=== PATIENT | female | born 1955 | race Caucasian/White ===

== ENCOUNTER 2022-06-11 10:43 | Outpatient (CLI) | payer OTHER | END 2022-06-11 10:44 | disposition home or self-care (01) | LOC: DTY/OP 10:43 | PROVIDERS: ATTEND Surgery | DX: E66.01 Morbid (severe) obesity due to excess calories (principal) | CPT/HCPCS: 97802 ==

== ENCOUNTER 2022-09-09 10:15 | Inpatient (IN) | payer MEDICARE ==
[2022-09-19 11:22] LABS: SARS-CoV-2 NAA Rapid Test Not Detected (NotDetected)
[2022-09-19] MEDS ORDERED: Bupivacaine/Epinephrine 0.25% 30 ML VIAL ONE (14:48)
[2022-09-19] MEDS ORDERED: SUGAMMADEX SODIUM 200 MG/2 ML VIAL ONE (14:49)
[2022-09-19] MEDS ORDERED: fentaNYL PF 100 MCG/2 ML SYRINGE ONE ×2 (14:49→16:37)
[2022-09-19] MEDS ORDERED: Levofloxacin 500 mg/D5W 100 ml Premix Bag ONE (14:53)
[2022-09-19] MEDS ORDERED: PROPOFOL 200 MG/20 ML VIAL ONE (15:06)
[2022-09-19] MEDS ORDERED: Rocuronium Bromide 10 MG/ML (10ML VIAL) ONE (15:06)
[2022-09-19] MEDS ORDERED: Esmolol 100 MG/10 ML VIAL ONE (15:06)
[2022-09-19] MEDS ORDERED: Ondansetron HCl/PF 4 MG/2 ML Vial IVP PRN (16:28)
[2022-09-19] MEDS ORDERED: Promethazine HCl 25 MG/ML VIAL IVPB PRN (16:28)
[2022-09-19] MEDS ORDERED: Promethazine HCl 25 MG/ML VIAL IM PRN ×2 (16:28→16:29)
[2022-09-19] MEDS ORDERED: diphenhydrAMINE 50 MG/ML VIAL IVP PRN (16:29)
[2022-09-19] MEDS ORDERED: Dextrose 50% Abboject 50 ML SYRINGE SLOW IVP PRN (16:29)
[2022-09-19] MEDS ORDERED: hydrALAZINE 20 MG/ML VIAL SLOW IVP PRN (16:29)
[2022-09-19] MEDS ORDERED: Dextrose 5% in Water 1,000 ML IV PRN (16:29)
[2022-09-19] MEDS ORDERED: Ondansetron PF 4 MG/2 ML Vial IVP PRN (16:29)
[2022-09-19] MEDS ORDERED: Morphine 4 MG/ML VIAL SLOW IVP PRN (16:38)
[2022-09-19] MEDS ORDERED: Simethicone 40 MG/0.6 ML Drop 30 ML BOT PO PRN (17:47)
[2022-09-19] MEDS ORDERED: FENTANYL 50 MCG/ML 1 ML VIAL ONE (18:08)
[2022-09-19] MEDS: Hydrocodone-Acetamin 15 ML UDCUP PO PRN (20:02)
[2022-09-19] MEDS: Morphine 4 MG/ML VIAL SLOW IVP PRN (20:06)
[2022-09-19 20:10] VITALS: BMI 41.6
[2022-09-20] MEDS: Hydrocodone-Acetamin 15 ML UDCUP PO PRN ×2 (00:15→13:55)
[2022-09-20] MEDS: HumaLOG 300 UNITS/3 ML VIAL SC PRN ×3 (01:39→13:56)
[2022-09-20] MEDS: Morphine 4 MG/ML VIAL SLOW IVP PRN (04:07)
[2022-09-20] MEDS ORDERED: Sodium Chloride 0.9% 1,000 ML IV SCH (04:30)
[2022-09-20 05:13] LABS: #Eosinphils 0.1 thou/uL (0.0-0.7); #Lymphocytes 2.6 thou/uL (1.20-3.40); #Monocytes 1.1 thou/uL (0.11-0.59); #Neutrophils 12.8 thou/uL (1.40-6.50); %Basophils 0.1 % (0.0-1.0); %Eosinophils 0.8 % (0.0-10.0); %Lymphocytes 15.4 % (21.0-51.0); %Monocytes 6.8 % (0.0-10.0); Hemoglobin 9.7 g/dL (12.0-16.0); Mean Corpuscular HGB CONC 30.8 g/dL (32.0-36.0); Mean Corpuscular Hemoglobin 26.7 pg (27.0-31.0); Mean Corpuscular Volume 86.7 fl (78.0-98.0); Mean Platelet Volume 8.1 fL (7.4-10.4); Platelet Count 300 10x3/uL (130-400); RBC Distribution Width 15.2 % (11.5-14.5); Red Blood Cell (RBC) Count 3.63 mill/uL (4.20-5.40); White Blood Cell (WBC) Count 16.7 10x3/uL (4.8-10.8)
[2022-09-20 05:19] LABS: Anion Gap 20 mmol/L (10-20); BUN (Urea Nitrogen) 35 mg/dL (9.8-20.1); Calc. Creatinine Clearance 74 mL/min (70-130); Calcium 8.6 mg/dL (7.8-10.44); Carbon Dioxide 16 mmol/L (23-31); Chloride 102 mmol/L (98-107); Estimated GFR 45; Glucose 287 mg/dL (80-115); Potassium 5.6 mmol/L (3.5-5.1); Sodium 132 mmol/L (136-145)
[2022-09-20] MEDS: Pantoprazole 40 MG VIAL IVP SCH (08:43)
[2022-09-20] MEDS ORDERED: FLU VACC QS2022-23(65YR UP)/PF 240 MCG/0.7 ML SYRINGE IM ONE (09:00)
[2022-09-20] MEDS ORDERED: Enoxaparin Sodium 40 MG/0.4 ML SYRINGE SC SCH (09:00)
[2022-09-20 09:46] LABS: Hemoglobin 9.3 g/dL (12.0-16.0)
[2022-09-20] MEDS ORDERED: Lactated Ringer's 500 ML IV SCH ×3 (11:00→15:45)
[2022-09-20 12:04] LABS: Lactic Acid 2.5 mmol/L (0.5-2.2)
[2022-09-20] MEDS: methylPREDNISolone Sod Succ 40 MG VIAL IVP SCH ×2 (13:55→17:15)
[2022-09-20 15:07] LABS: Reticulocyte Count 3.1 % (0.5-1.5)
[2022-09-20 15:09] LABS: Hemoglobin 9.2 g/dL (12.0-16.0)
[2022-09-20 15:11] LABS: Potassium 4.3 mmol/L (3.5-5.1)
[2022-09-20 15:15] LABS: Lactic Acid 2.6 mmol/L (0.5-2.2)
[2022-09-20 15:18] LABS: INR-International Normal Ratio 1.3; Iron 24 ug/dL (50-170); Iron Binding Capacity, Total 356 mcg/dL (265-497); PTT 27.4 sec (22.9-36.1); Prothrombin Time 16.3 sec (12.0-14.7)
[2022-09-20 18:56] LABS: Lactic Acid 2.4 mmol/L (0.5-2.2)
[2022-09-20] MEDS: Mometasone 100 MCG/Formoterol 5 MCG 120 PUFF INHALER INH SCH (20:05)
[2022-09-20 21:35] LABS: Hemoglobin 8.3 g/dL (12.0-16.0)
[2022-09-20] MEDS: Insulin Glargine 30 UNITS/0.3 ML VIAL SC SCH (22:35)
[2022-09-21] MEDS: methylPREDNISolone Sod Succ 40 MG VIAL IVP SCH ×2 (00:11→06:39)
[2022-09-21 05:06] LABS: #Eosinphils 0.2 thou/uL (0.0-0.7); #Lymphocytes 1.3 thou/uL (1.20-3.40); #Monocytes 0.2 thou/uL (0.11-0.59); #Neutrophils 7.5 thou/uL (1.40-6.50); %Basophils 0.2 % (0.0-1.0); %Lymphocytes 14.3 % (21.0-51.0); %Monocytes 2.1 % (0.0-10.0); %Neutrophils 81.4 % (42.0-75.0); Mean Corpuscular HGB CONC 31.8 g/dL (32.0-36.0); Mean Corpuscular Hemoglobin 26.9 pg (27.0-31.0); Mean Corpuscular Volume 84.6 fl (78.0-98.0); Mean Platelet Volume 8.5 fL (7.4-10.4); Platelet Count 222 10x3/uL (130-400); RBC Distribution Width 15.2 % (11.5-14.5); Red Blood Cell (RBC) Count 2.96 mill/uL (4.20-5.40); White Blood Cell (WBC) Count 9.3 10x3/uL (4.8-10.8)
[2022-09-21 05:18] LABS: Anion Gap 17 mmol/L (10-20); BUN (Urea Nitrogen) 45 mg/dL (9.8-20.1); Calc. Creatinine Clearance 64 mL/min (70-130); Calcium 8.9 mg/dL (7.8-10.44); Carbon Dioxide 21 mmol/L (23-31); Chloride 98 mmol/L (98-107); Estimated GFR 38; Glucose 285 mg/dL (80-115); Potassium 4.7 mmol/L (3.5-5.1); Sodium 131 mmol/L (136-145)
[2022-09-21] MEDS: Mometasone 100 MCG/Formoterol 5 MCG 120 PUFF INHALER INH SCH ×2 (07:16→18:19)
[2022-09-21] MEDS: Pantoprazole 40 MG VIAL IVP SCH (08:51)
[2022-09-21] MEDS: HumaLOG 300 UNITS/3 ML VIAL SC PRN ×3 (08:55→16:35)
[2022-09-21] MEDS: Calcitriol 0.25 MCG CAP PO SCH (10:29)
[2022-09-21 15:30] LABS: Hemoglobin 7.9 g/dL (12.0-16.0)
[2022-09-21] MEDS: DULoxetine 60 MG CAP PO SCH (22:03)
[2022-09-21] MEDS: Insulin Glargine 30 UNITS/0.3 ML VIAL SC SCH (22:03)
[2022-09-21] MEDS: Potassium Chloride 20 MEQ TAB PO SCH (22:03)
[2022-09-21 22:21] LABS: Hemoglobin 7.5 g/dL (12.0-16.0)
[2022-09-22 05:05] LABS: #Lymphocytes 3.5 thou/uL (1.20-3.40); #Monocytes 1.5 thou/uL (0.11-0.59); #Neutrophils 6.8 thou/uL (1.40-6.50); %Basophils 0.2 % (0.0-1.0); %Eosinophils 0.4 % (0.0-10.0); %Lymphocytes 29.7 % (21.0-51.0); %Monocytes 12.2 % (0.0-10.0); %Neutrophils 57.6 % (42.0-75.0); Hemoglobin 7.3 g/dL (12.0-16.0); Mean Corpuscular Volume 84.2 fl (78.0-98.0); Mean Platelet Volume 8.1 fL (7.4-10.4); Platelet Count 261 10x3/uL (130-400); RBC Distribution Width 15.1 % (11.5-14.5); Red Blood Cell (RBC) Count 2.72 mill/uL (4.20-5.40); White Blood Cell (WBC) Count 11.8 10x3/uL (4.8-10.8)
[2022-09-22 05:29] LABS: Anion Gap 15 mmol/L (10-20); BUN (Urea Nitrogen) 48 mg/dL (9.8-20.1); Calc. Creatinine Clearance 71 mL/min (70-130); Calcium 9.2 mg/dL (7.8-10.44); Carbon Dioxide 23 mmol/L (23-31); Chloride 99 mmol/L (98-107); Estimated GFR 42; Glucose 223 mg/dL (80-115); Potassium 4.3 mmol/L (3.5-5.1); Sodium 133 mmol/L (136-145)
[2022-09-22] MEDS ORDERED: predniSONE 20 MG TAB PO SCH (08:00)
[2022-09-22] MEDS: Mometasone 100 MCG/Formoterol 5 MCG 120 PUFF INHALER INH SCH ×2 (08:05→18:56)
[2022-09-22] MEDS: DULoxetine 60 MG CAP PO SCH ×2 (08:56→22:03)
[2022-09-22] MEDS: Nateglinide 120 MG TAB PO SCH ×3 (08:56→16:12)
[2022-09-22] MEDS: Calcitriol 0.25 MCG CAP PO SCH (08:56)
[2022-09-22] MEDS: Torsemide 20 MG TAB PO SCH (08:57)
[2022-09-22] MEDS: Potassium Chloride 20 MEQ TAB PO SCH ×2 (08:58→22:03)
[2022-09-22] MEDS: Pantoprazole 40 MG VIAL IVP SCH ×2 (11:07→22:04)
[2022-09-22] MEDS: HumaLOG 300 UNITS/3 ML VIAL SC PRN ×2 (11:13→16:29)
[2022-09-22 11:48] LABS: Hemoglobin 7.9 g/dL (12.0-16.0)
[2022-09-22 17:54] LABS: Hemoglobin 8.6 g/dL (12.0-16.0)
[2022-09-22 21:02] LABS: Hemoglobin 8.8 g/dL (12.0-16.0)
[2022-09-22] MEDS: Insulin Glargine 30 UNITS/0.3 ML VIAL SC SCH (22:02)
[2022-09-22] MEDS ORDERED: HYDROcodone/Acetaminophen 7.5/325 mg Tablet PO SCH (23:30)
[2022-09-23 05:05] LABS: #Eosinphils 0.1 thou/uL (0.0-0.7); #Lymphocytes 3.2 thou/uL (1.20-3.40); #Neutrophils 4.8 thou/uL (1.40-6.50); %Basophils 0.2 % (0.0-1.0); %Eosinophils 0.9 % (0.0-10.0); %Lymphocytes 35.3 % (21.0-51.0); %Monocytes 10.4 % (0.0-10.0); %Neutrophils 53.2 % (42.0-75.0); Mean Corpuscular HGB CONC 32.9 g/dL (32.0-36.0); Mean Corpuscular Hemoglobin 28.1 pg (27.0-31.0); Mean Corpuscular Volume 85.3 fl (78.0-98.0); Mean Platelet Volume 7.8 fL (7.4-10.4); Platelet Count 219 10x3/uL (130-400); RBC Distribution Width 15.1 % (11.5-14.5); Red Blood Cell (RBC) Count 2.83 mill/uL (4.20-5.40); White Blood Cell (WBC) Count 9.1 10x3/uL (4.8-10.8)
[2022-09-23 05:23] LABS: Anion Gap 13 mmol/L (10-20); BUN (Urea Nitrogen) 46 mg/dL (9.8-20.1); Calc. Creatinine Clearance 75 mL/min (70-130); Calcium 9.1 mg/dL (7.8-10.44); Carbon Dioxide 26 mmol/L (23-31); Chloride 99 mmol/L (98-107); Estimated GFR 46; Glucose 127 mg/dL (80-115); Potassium 4.1 mmol/L (3.5-5.1); Sodium 134 mmol/L (136-145)
[2022-09-23] MEDS: Mometasone 100 MCG/Formoterol 5 MCG 120 PUFF INHALER INH SCH (07:24)
[2022-09-23] MEDS: Nateglinide 120 MG TAB PO SCH ×2 (08:43→11:59)
[2022-09-23] MEDS: DULoxetine 60 MG CAP PO SCH (08:43)
[2022-09-23] MEDS: Calcitriol 0.25 MCG CAP PO SCH (08:43)
[2022-09-23] MEDS: Potassium Chloride 20 MEQ TAB PO SCH (08:45)
[2022-09-23] MEDS: Torsemide 20 MG TAB PO SCH (08:45)
[2022-09-23] MEDS: Pantoprazole 40 MG VIAL IVP SCH (08:45)
[2022-09-23 10:05] LABS: Hemoglobin 9.2 g/dL (12.0-16.0)
[2022-09-23 15:28] VITALS: BP 177/74; TEMP 97.6
== END 2022-09-23 16:30 | disposition home or self-care (01) | DRG 620 ==
LOC: SURG A 09-19 09:17 → 2NO 09-20 15:48
PROVIDERS: ADMIT Surgery; ATTEND Internal Medicine
PROC: 0DB64Z3 Excision of Stomach, Percutaneous Endoscopic Approach, Vertical (ICD-10-PCS; principal; 2022-09-19)
PROC: 8E0W4CZ Robotic Assisted Procedure of Trunk Region, Percutaneous Endoscopic Approach (ICD-10-PCS; 2022-09-19)
PROC: 30233N1 Transfusion of Nonautologous Red Blood Cells into Peripheral Vein, Percutaneous Approach (ICD-10-PCS; 2022-09-21)
DX: E66.01 Morbid (severe) obesity due to excess calories (principal); J45.901 Unspecified asthma with (acute) exacerbation; K91.841 Postprocedural hemorrhage of a digestive system organ or structure following other procedure; Z68.41 Body mass index [BMI] 40.0-44.9, adult; Z20.822 Contact with and (suspected) exposure to COVID-19; E11.9 Type 2 diabetes mellitus without complications; I10 Essential (primary) hypertension; M19.90 Unspecified osteoarthritis, unspecified site; F41.9 Anxiety disorder, unspecified; F32.A Depression, unspecified; E89.0 Postprocedural hypothyroidism; E87.5 Hyperkalemia; I48.91 Unspecified atrial fibrillation; G47.33 Obstructive sleep apnea (adult) (pediatric); F41.0 Panic disorder [episodic paroxysmal anxiety]; I25.10 Atherosclerotic heart disease of native coronary artery without angina pectoris; F17.210 Nicotine dependence, cigarettes, uncomplicated; D51.0 Vitamin B12 deficiency anemia due to intrinsic factor deficiency; Y83.8 Other surgical procedures as the cause of abnormal reaction of the patient, or of later complication, without mention of misadventure at the time of the procedure; Z95.0 Presence of cardiac pacemaker; Z90.5 Acquired absence of kidney; Z79.899 Other long term (current) drug therapy; Z79.82 Long term (current) use of aspirin; Z82.49 Family history of ischemic heart disease and other diseases of the circulatory system; Z88.1 Allergy status to other antibiotic agents; Z88.0 Allergy status to penicillin; Z88.2 Allergy status to sulfonamides; Z28.81 Immunization not carried out due to patient having had the disease
CPT/HCPCS: 36415; 36416; 36430; 71045; 72040; 80048; 82728; 83010; 83540; 83550; 83605; 83615; 85025; 85046; 85610; 85730; 86850; 86900; 86901; 88307; 93005; 93010; C1889; C9113; J0360; J1650; J1815; J1956; J2270; J2704; J2920; J3010; J7050; J7120; J7512; P9016; U0002

== ENCOUNTER 2022-09-09 14:22 | Outpatient (CLI) | payer MEDICARE ==
[2022-09-09 15:39] LABS: #Basophils 0.1 10x3/uL (0.0-0.2); #Eosinphils 0.3 10x3/uL (0.0-0.5); #Monocytes 1.3 10x3/uL (0.0-1.1); #Neutrophils 7.1 10x3/uL (1.5-8.4); %Basophils 0.9 % (0.0-2.0); %Eosinophils 2.7 % (0.0-6.0); %Lymphocytes 28.9 % (18.0-47.0); %Monocytes 10.3 % (0.0-10.0); %Neutrophils 56.6 % (40.0-75.0); Hemoglobin 12.8 g/dL (12.0-15.5); Mean Corpuscular HGB CONC 32.4 g/dL (32.0-36.0); Mean Corpuscular Hemoglobin 26.6 pg (27.0-33.0); Mean Platelet Volume 10.2 fl (7.4-10.4); Platelet Count 280 10x3/uL (150-450); RBC Distribution Width 15.6 % (11.5-14.5); Red Blood Cell (RBC) Count 4.82 10x6/uL (3.90-5.03); White Blood Cell (WBC) Count 12.4 10x3/uL (3.5-10.5)
[2022-09-09 15:50] LABS: ALT (SGPT) 25 U/L (8-55); AST (SGOT) 16 U/L (5-34); Albumin 4.2 g/dL (3.4-4.8); Alkaline Phosphatase 101 U/L (40-110); Anion Gap 17 mmol/L (10-20); BUN (Urea Nitrogen) 60 mg/dL (9.8-20.1); Bilirubin, Total 0.9 mg/dL (0.2-1.2); Calc. Creatinine Clearance 0 mL/min (70-130); Calcium 10.1 mg/dL (7.8-10.44); Carbon Dioxide 26 mmol/L (23-31); Chloride 96 mmol/L (98-107); Estimated GFR 38; Globulin 2.2 g/dL (2.4-3.5); Glucose 277 mg/dL (80-115); Potassium 4.4 mmol/L (3.5-5.1); Protein, Total 6.4 g/dL (5.8-8.1); Sodium 135 mmol/L (136-145)
[2022-09-10] LABS: Hemoglobin A1c 7.7 % (4.0-6.0)
== END 2022-09-09 14:23 | disposition home or self-care (01) ==
LOC: LABBT 14:22
PROVIDERS: ATTEND Surgery
DX: Z01.818 Encounter for other preprocedural examination (principal); G47.30 Sleep apnea, unspecified; E11.9 Type 2 diabetes mellitus without complications; I10 Essential (primary) hypertension; M47.814 Spondylosis without myelopathy or radiculopathy, thoracic region; Z68.42 Body mass index [BMI] 45.0-49.9, adult
CPT/HCPCS: 71046; 80053; 83036; 85025; 93005; 93010

== ENCOUNTER 2023-02-18 06:52 | Day surgery (SDC) | payer MEDICARE ==
[2023-02-17 10:35] VITALS: BMI 40.7
[2023-02-18] MEDS ORDERED: PROPOFOL 200 MG/20 ML VIAL ONE (10:11)
[2023-02-18] MEDS ORDERED: Lidocaine 1% PF 5 ML VIAL ONE (10:11)
== END 2023-02-18 12:55 | disposition home or self-care (01) ==
LOC: SDC 06:52
PROVIDERS: ATTEND Internal Medicine Gastroenterology
PROC: 0D758ZZ Dilation of Esophagus, Via Natural or Artificial Opening Endoscopic (ICD-10-PCS; principal; 2023-02-18)
PROC: 0DBH8ZX Excision of Cecum, Via Natural or Artificial Opening Endoscopic, Diagnostic (ICD-10-PCS; 2023-02-18)
PROC: 0DBL8ZX Excision of Transverse Colon, Via Natural or Artificial Opening Endoscopic, Diagnostic (ICD-10-PCS; 2023-02-18)
PROC: 0DBP8ZX Excision of Rectum, Via Natural or Artificial Opening Endoscopic, Diagnostic (ICD-10-PCS; 2023-02-18)
PROC: 0DBM8ZX Excision of Descending Colon, Via Natural or Artificial Opening Endoscopic, Diagnostic (ICD-10-PCS; 2023-02-18)
DX: Z12.11 Encounter for screening for malignant neoplasm of colon (principal); D12.0 Benign neoplasm of cecum; D12.3 Benign neoplasm of transverse colon; D12.4 Benign neoplasm of descending colon; K62.1 Rectal polyp; R13.19 Other dysphagia; K21.9 Gastro-esophageal reflux disease without esophagitis; I11.0 Hypertensive heart disease with heart failure; I50.9 Heart failure, unspecified; J44.9 Chronic obstructive pulmonary disease, unspecified; M19.90 Unspecified osteoarthritis, unspecified site; I48.91 Unspecified atrial fibrillation; E11.9 Type 2 diabetes mellitus without complications; E66.9 Obesity, unspecified; Z68.41 Body mass index [BMI] 40.0-44.9, adult; Z87.891 Personal history of nicotine dependence; Z79.01 Long term (current) use of anticoagulants; Z79.82 Long term (current) use of aspirin; Z79.84 Long term (current) use of oral hypoglycemic drugs; Z79.899 Other long term (current) drug therapy; Z88.0 Allergy status to penicillin; Z88.1 Allergy status to other antibiotic agents; Z88.2 Allergy status to sulfonamides; Z88.8 Allergy status to other drugs, medicaments and biological substances; Z95.0 Presence of cardiac pacemaker; Z90.5 Acquired absence of kidney; Z98.84 Bariatric surgery status
CPT/HCPCS: 88305; J2704

== ENCOUNTER 2024-12-09 13:06 | Outpatient (CLI) | payer MEDICARE ==
[2024-12-09 14:16] LABS: #Basophils 0.08 10x3/uL (0.0-0.2); %Basophils 0.9 % (0.0-1.0); %Eosinophils 4.3 % (0.0-10.0); %Lymphocytes 42.6 % (21.0-51.0); %Monocytes 9.7 % (0.0-10.0); %Neutrophils 42.3 % (42.0-75.0); Hematocrit 38.9 % (36.0-47.0); Hemoglobin 11.8 g/dL (12.0-16.0); Mean Corpuscular HGB CONC 30.3 g/dL (32.0-36.0); Mean Corpuscular Hemoglobin 23.7 pg (27.0-31.0); Mean Corpuscular Volume 78.3 fL (78.0-98.0); Mean Platelet Volume 9.6 fL (7.4-10.4); Platelet Count 264 10x3/uL (130-400); RBC Distribution Width 16.2 % (11.5-14.5); Red Blood Cell (RBC) Count 4.97 mill/uL (4.20-5.40)
[2024-12-09 14:27] LABS: Hemoglobin A1c 6.1 % (4.0-6.0)
[2024-12-09 14:29] LABS: Anion Gap 14 mmol/L (10-20); BUN (Urea Nitrogen) 38 mg/dL (9.8-20.1); Calc. Creatinine Clearance 0 mL/min (70-130); Calcium 9.9 mg/dL (7.8-10.44); Carbon Dioxide 26 mmol/L (23-31); Chloride 100 mmol/L (98-107); Estimated GFR 64; Glucose 139 mg/dL (83-110); INR-International Normal Ratio 1.1; Potassium 3.9 mmol/L (3.5-5.1); Sodium 136 mmol/L (136-145)
[2024-12-09 14:30] LABS: PTT 33.9 sec (22.9-36.1)
== END 2024-12-09 13:07 | disposition home or self-care (01) ==
LOC: LABBT 13:06
PROVIDERS: ATTEND Orthopaedic Surgery
DX: Z01.818 Encounter for other preprocedural examination (principal); G89.4 Chronic pain syndrome
CPT/HCPCS: 80048; 83036; 85025; 85610; 85730; 93005; 93010

== ENCOUNTER 2025-10-31 02:42 | Emergency (ER) | payer MEDICARE ==
[2025-10-31 03:48] LABS: #Basophils 0.09 10x3/uL (0.0-0.2); #Eosinophils 0.50 10x3/uL (0.0-0.7); #Monocytes 1.05 10x3/uL (0.11-0.59); #Neutrophils 5.26 10x3/uL (1.40-6.50); %Basophils 1.0 % (0.0-1.0); %Eosinophils 5.5 % (0.0-10.0); %Lymphocytes 24.5 % (21.0-51.0); %Monocytes 11.5 % (0.0-10.0); %Neutrophils 57.3 % (42.0-75.0); Hematocrit 39.7 % (36.0-47.0); Hemoglobin 11.6 g/dL (12.0-16.0); Mean Corpuscular Hemoglobin 22.5 pg (27.0-31.0); Mean Corpuscular Volume 76.9 fL (78.0-98.0); Platelet Count 230 10x3/uL (130-400); Red Blood Cell (RBC) Count 5.16 mill/uL (4.20-5.40); White Blood Cell (WBC) Count 9.17 10x3/uL (4.8-10.8)
[2025-10-31 04:06] LABS: INR-International Normal Ratio 1.1; Prothrombin Time 14.7 sec (12.0-14.7)
[2025-10-31 04:07] LABS: PTT 37.7 sec (22.9-36.1)
[2025-10-31 04:09] LABS: ALT (SGPT) 15 U/L (Less than 34); AST (SGOT) 24 U/L (11-34); Albumin 4.0 g/dL (3.1-4.5); Alkaline Phosphatase 83 U/L (40-110); Anion Gap 12 mmol/L (10-20); BUN (Urea Nitrogen) 31 mg/dL (9.8-20.1); Bilirubin, Total 0.7 mg/dL (0.3-1.2); Calc. Creatinine Clearance 0 mL/min (70-130); Calcium 10.5 mg/dL (7.8-10.44); Carbon Dioxide 32 mmol/L (23-31); Chloride 95 mmol/L (98-107); Globulin 2.9 g/dL (2.4-3.5); Glucose 119 mg/dL (83-110); Lipase 85 U/L (8-78); Potassium 4.1 mmol/L (3.5-5.1); Sodium 135 mmol/L (136-145)
[2025-10-31] MEDS ORDERED: Ketorolac Tromethamine 30 MG (1 mL) VIAL ONE (05:12)
== END 2025-10-31 02:50 | disposition home or self-care (01) ==
LOC: ERS 02:42
DX: S00.33XA Contusion of nose, initial encounter (principal); M79.10 Myalgia, unspecified site; I11.0 Hypertensive heart disease with heart failure; I50.9 Heart failure, unspecified; J44.89 Other specified chronic obstructive pulmonary disease; Z79.51 Long term (current) use of inhaled steroids; Z79.01 Long term (current) use of anticoagulants; Z79.84 Long term (current) use of oral hypoglycemic drugs; Z79.890 Hormone replacement therapy; Z79.899 Other long term (current) drug therapy; W19.XXXA Unspecified fall, initial encounter
CPT/HCPCS: 70450; 70486; 71250; 72125; 80053; 80307; 83690; 84484; 85025; 85610; 85730; 86850; 86900; 86901; 93005; 94760; J1885; TRAUM; 96374